=== PATIENT | female | born 1955 | race Caucasian/White ===

== ENCOUNTER 2017-08-17 08:10 | Day surgery (SDC) | payer MEDICAID ==
[~2017-08-17] VITALS: Ht 165.1 cm; Wt 58.4 kg
[2017-08-17] VITALS (9 sets, daily range): BP systolic 99–146; BP diastolic 61–87
[2017-08-17] MEDS ORDERED: normal saline 1000ml 1,000 ML IV PRN (08:35)
[2017-08-17] MEDS ORDERED: LORA-269 PO (08:49)
[2017-08-17] MEDS ORDERED: VITA1TAB20 PO (08:49)
[2017-08-17] MEDS ORDERED: LISI-600 PO (08:49)
[2017-08-17] MEDS ORDERED: AMLO2.5T2 PO (08:49)
[2017-08-17] MEDS ORDERED: OMEP40CA37 PO (08:49)
[2017-08-17] MEDS ORDERED: POLY17PO10 PO (08:49)
[2017-08-17] MEDS ORDERED: FOLI0.4T2 PO (08:49)
[2017-08-17] MEDS ORDERED: SIMV20TA5 PO (08:49)
[2017-08-17] MEDS ORDERED: LIDOcaine 1%/PF (10mg/ml) 5ml vial ONE (10:02)
[2017-08-17] MEDS ORDERED: LIDOcaine 1%/PF (10mg/ml) 5ml vial SQ ONE (10:25)
[2017-08-17] MEDS ORDERED: heparin sodium, porcine/PF 100unit/ml 5ML syringe ICATH ONE (10:25)
[2017-08-17] MEDS ORDERED: midazolam 2 mg/2 ml injection IV PRN (10:25)
[2017-08-17] MEDS ORDERED: fentaNYL/PF 50MCG/1 ML 2ML syringe IV PRN (10:25)
[2017-08-17] MEDS ORDERED: heparin sodium, porcine/PF 100unit/ml 5ML syringe ONE (10:58)
[2017-08-17] MEDS ORDERED: fentaNYL/PF 50MCG/1 ML 2ML syringe ONE ×2 (10:58→11:14)
[2017-08-17] MEDS ORDERED: midazolam 2 mg/2 ml injection ONE ×2 (10:58→11:14)
== END 2017-08-17 14:45 | disposition home or self-care (01) ==
LOC: SSTAY O 08:10
PROVIDERS: ATTEND Radiology Vascular & Interventional Radiology
DX: C16.0 Malignant neoplasm of cardia (principal); Z85.3 Personal history of malignant neoplasm of breast; I10 Essential (primary) hypertension; E78.00 Pure hypercholesterolemia, unspecified
CPT/HCPCS: 36561; 76937; 77001; A6219; A6257; A6402; C1788; C1894; J1642; J2001; J2250; J3010; J7030; 99152; 99153; A4620

== ENCOUNTER 2019-05-22 11:11 | Day surgery (SDC) | payer MEDICARE, MEDICAID ==
[~2019-05-22] VITALS: Ht 160 cm; Wt 45.0 kg
[~2019-05-22 11:11] MED LIST: AMLO2.5T2 PO; FOLI0.4T2 PO; LISI-600 PO; LORA-269 PO; OMEP40CA13 PO; POLY17PO10 PO; SIMV-42 PO; VITA1TAB20 PO
[2019-05-22 11:22] VITALS: BP 156/95
[2019-05-22] MEDS ORDERED: MORPHINE PEG (11:33)
[2019-05-22] MEDS ORDERED: MIRT15TA PO (11:33)
[2019-05-22] MEDS ORDERED: MIDAZolam 5mg/5ml vial ONE (12:32)
[2019-05-22] MEDS ORDERED: fentaNYL/PF 50MCG/1 ML 2ML syringe ONE (12:32)
[2019-05-22 12:51] VITALS: BP 98/64
[2019-05-22 13:01] VITALS: BP 97/68
[2019-05-22 13:11] VITALS: BP 98/67
[2019-05-22 13:21] VITALS: BP 116/68
== END 2019-05-22 13:50 | disposition home or self-care (01) ==
LOC: GI LAB 11:11
PROVIDERS: ATTEND Internal Medicine Gastroenterology
DX: Z43.1 Encounter for attention to gastrostomy (principal)
CPT/HCPCS: 43762; G0500; J2250; J3010; J7040; 44372; 99152; A4620; B4087; G0463